=== PATIENT | female | born 1930 | race American Indian/Alaskan Native ===

== ENCOUNTER 2016-05-27 08:50 | Day surgery (SDC) | payer MEDICARE ==
--- NOTE | 2016-05-27 10:44 | Anesthesia Day of Surgery ---
Anesthesia Day of Surgery - Day of Surgery Patient Examined: Yes Patient H&P Reviewed: Yes Patient is NPO: Yes
--- NOTE | 2016-05-27 10:46 | Anesthesia Consultation ---
Anesthesia Consult and Med Hx - Airway Anesthetic Teeth Evaluation: Dentures ROM Head & Neck: Adequate Mental/Hyoid Distance: Adequate Mallampati Class: Class II Intubation Access Assessment: Probably Good - Pulmonary Exam CTA: Yes - Pre-Operative Health Status ASA Pre-Surgery Classification: ASA3 Proposed Anesthetic Plan: MAC - Pulmonary Hx Smoking: Yes Hx Asthma: Yes - Cardiovascular System Hx Hypertension: Yes - Gastrointestinal Hx Gastroesophageal Reflux Disease: Yes - Endocrine Hx Non-Insulin Dependent Diabetes: Yes Hx Hypothyroidism: Yes - Other Systems Hx Obesity: Yes - Additional Comments Anesthesia Medical History Comments: npo after MN. No prior anesthesia problems
[2016-05-27] MEDS ORDERED: XYLOCAINE MPF 2% ONE (10:50)
[2016-05-27] MEDS ORDERED: DIPRIVAN 10 MG/ML IV ONE (10:51)
[2016-05-27] MEDS ORDERED: NACL 0.9% 1000 ML 1,000 ML IV SCH (11:00)
--- NOTE | 2016-05-27 11:12 | Discharge Summary ---
Short Stay Discharge Plan Activity: advance as tolerated Weight Bearing Status: Weight Bear as Tolerated Diet: regular Follow up with: CRISTINO COOK MD [Primary Care Provider] - 7 Days
--- NOTE | 2016-05-27 11:12 | Operative Report ---
Operative Report Operative Report: Operative Report: Date of procedure: 05/27/2016 Procedure: Esophagogastroduodenoscopy with multiple mucosal biopsies Attending physician: Gui Gunter MD Busgirl: Gui Gunter MD Indication: Patient is a 85-year-old female who presented with a history of epigastric pain heartburn and indigestion. An upper endoscopy is done to assess patient regarding cause of her symptoms so that treatment may be directed based on the findings. Consent: Informed consent was obtained after advising the patient and family regarding nature of this procedure, its indications, potential benefits as well as possible complications including but not limited to bleeding perforation and adverse reaction to medication, infection as well as other cardiopulmonary complications. An informed written and verbal consent was then obtained after due opportunity was provided for questions and answers. Monitoring: Patient was monitored continuously with pulse oximetry and electrocardiographic recordings as well as blood pressure recordings. Vital signs remained stable throughout this procedure with no untoward events. Preoperative assessment: Patient was assessed immediately prior to this procedure for capacity to tolerate monitored anesthesia care and moderate sedation as well as general anesthesia. Patient's ASA classification is 2, Mallampati class is 2, Hyomental distance is 3. Instrument: [employer] video endoscope Medications: Propofol given intravenously in divided doses. For details please refer to anesthesia records. Description of procedure: Patient was placed in the left lateral decubitus position after achieving sedation, the endoscope was introduced into the esophagus under direct vision. It was then advanced beyond the esophagus into the stomach and then beyond the stomach into the duodenum and to the second portion of the duodenum. It was subsequently withdrawn with careful inspection of all mucosal surfaces with the following findings. Findings: Esophagus was relatively normal however patient had an irregular Z line at 39 cm. There was a 1-2 cm sliding hiatal hernia seen on entry into the stomach. There was There was mild erythema in the gastric antrum. Biopsies of the antrum were obtained for histopathology. The duodenum was normal to second portion. Impression: Irregular Z line. Hiatal hernia. Gastric antral erythema. Plan: Follow pathology report. Direct additional treatment based on the pathology report.
--- NOTE | 2016-05-27 11:41 | Post Anesthesia Evaluation ---
- Post Anesthesia Evaluation Patient Participated: Yes Airway Patent: Yes Stable Respiratory Function: Yes Nausea/Vomiting: No Temp > 96.8F: Yes Pain Manageable: Yes Adequeate Hydration: Yes Anesthesia Complications: No Block Receding Appropriately: Not Applicable Patient on Ventilator: No
[2016-05-27 11:54] VITALS: BP 134/72
== END 2016-05-27 08:51 | disposition home or self-care (01) ==
LOC: GIO 08:50
PROVIDERS: ATTEND Internal Medicine Gastroenterology
DX: K22.8 Other specified diseases of esophagus (principal); K31.89 Other diseases of stomach and duodenum; K44.9 Diaphragmatic hernia without obstruction or gangrene; M19.90 Unspecified osteoarthritis, unspecified site; I10 Essential (primary) hypertension; E11.9 Type 2 diabetes mellitus without complications; J45.909 Unspecified asthma, uncomplicated; K21.9 Gastro-esophageal reflux disease without esophagitis; E03.9 Hypothyroidism, unspecified; E78.00 Pure hypercholesterolemia, unspecified; E66.9 Obesity, unspecified; Z68.43 Body mass index [BMI] 50.0-59.9, adult; Z96.659 Presence of unspecified artificial knee joint; Z87.891 Personal history of nicotine dependence; Z83.3 Family history of diabetes mellitus
CPT/HCPCS: 43239; 82962; 88305; 88342; J7030; J2704

== ENCOUNTER 2019-02-05 16:22 | Observation (INO) | payer MEDICARE ==
[2019-02-05 17:13] LABS: Basophils # (Auto) 0.1 K/mm3 (0.0-0.1); Eosinophils # (Auto) 0.1 K/mm3 (0.0-0.4); Eosinophils % (Auto) 0.9 % (0.0-4.3); Hematocrit 40.4 % (30.3-42.9); Hemoglobin 13.8 gm/dl (10.1-14.3); Lymphocytes # (Auto) 1.7 K/mm3 (1.2-5.4); Lymphocytes % (Auto) 20.4 % (13.4-35.0); Mean Corpuscular HGB Conc 34 % (30-34); Mean Corpuscular Volume 97 fl (79-97); Monocytes # (Auto) 0.8 K/mm3 (0.0-0.8); Monocytes % (Auto) 9.1 % (0.0-7.3); Platelet Count 258 K/mm3 (140-440); Red Blood Count 4.16 M/mm3 (3.65-5.03)
[2019-02-05 17:32] LABS: BUN/Creatinine Ratio 19; Blood Urea Nitrogen 21 mg/dL (7-17); Calcium 9.4 mg/dL (8.4-10.2); Hemolysis Index 2
[2019-02-05 17:45] LABS: INR 1.03 (0.87-1.13)
[2019-02-05 17:46] LABS: Partial Thromboplastin Time 28.6 Sec. (24.2-36.6)
--- NOTE | 2019-02-05 18:20 | Cat Scan Report ---
CT head/brain wo con INDICATION / CLINICAL INFORMATION: 88 years Female; dizziness. TECHNIQUE: Routine CT head without contrast. All CT scans at this location are performed using CT dos e reduction for ALARA by means of automated exposure control. COMPARISON: None. FINDINGS: BRAIN / INTRACRANIAL CONTENTS: No acute hemorrhage, mass effect, midline shift, hydrocephalus, or acu te, large territorial infarct. No chronic infarct or focal atrophy. Cortical involution is seen. Mode rate dilatation of left temporal horn tip seen suggesting moderate volume loss in the left medial tem poral lobe.. No significant white matter abnormality. CRANIOCERVICAL JUNCTION: No significant abnormality. ORBITS: No significant abnormality of visualized orbits. SINUSES / MASTOIDS: No significant abnormality of the visualized paranasal sinuses or mastoid air alejo ls. ADDITIONAL FINDINGS: Vascular calcification is seen in the left vertebral artery. IMPRESSION: I do not see an acute parenchymal lesion in the brain. Signer Name: Jb Sheth MD Signed: 02/05/2019 6:15 PM Workstation Name: [id number]
[2019-02-05 18:27] LABS: Free T4 (Free Thyroxine) 1.29 ng/dL (0.76-1.46)
--- NOTE | 2019-02-05 18:32 | XRay Report ---
CHEST 1 VIEW 5:59 PM INDICATION / CLINICAL INFORMATION: Dizziness. COMPARISON: None available. FINDINGS: SUPPORT DEVICES: None. HEART / MEDIASTINUM: The heart size is borderline with a left ventricular configuration. There is mil d aortic tortuosity without aneurysm. LUNGS / PLEURA: No significant pulmonary or pleural abnormality. No pneumothorax. ADDITIONAL FINDINGS: There are advanced degenerative changes involving the left glenohumeral joint. IMPRESSION: No acute findings. Signer Name: Isak Saini MD Signed: 02/05/2019 6:28 PM Workstation Name: [id number]
--- NOTE | 2019-02-05 19:00 | Emergency Department Report ---
ED Dizziness HPI - General Chief Complaint: Arrhythmia/Palpitations Stated Complaint: DIZZINESS Time Seen by Provider: 02/05/19 16:42 Source: patient, EMS, old records reviewed Mode of arrival: Stretcher Limitations: No Limitations - History of Present Illness Initial Comments: 88 year-old female with past medical history of arthritis, asthma, diabetes, GERD, hypertension, and hypothyroidism presents to the hospital complains of episode of dizziness. Patient reports decreased appetite the last several days. She has not had a bowel movement in 3 days and felt that she was constipated. She took milk of magnesia and was passing a lot of gas. She attempted to have a bowel movement and was straining but no fecal output reported. He returned to b ed and she was feeling dizzy which is described both as a spinning and lightheaded sensation. EMS obtained a rhythm strip list was suggestive of torsades with spontaneous conversion to sinus rhythm. Patient denies headache, chest pain, shortness of breath, abdominal pain, nausea, or vomiting. Patient also complains of some involuntary shaking to her right arm and noted to have a mild tremor. PMD: Dr. Yanci Hernandez allergies: None - Related Data Home Medications Medication Instructions Recorded Confirmed Last Taken Allopurinol [Zyloprim] 300 mg PO QDAY 05/18/14 05/27/16 05/26/16 Aspirin [Aspirin BABY CHEW TAB] 325 mg PO QDAY 05/18/14 05/27/16 05/25/16 Diltiazem HCl [Diltiazem 24Hr ER] 325 mg PO DAILY 05/18/14 05/27/16 05/27/16 Levothyroxine [Synthroid] 75 mcg PO QAM 05/18/14 05/27/16 05/26/16 Lisinopril [Zestril] 20 mg PO BID 05/18/14 05/27/16 05/26/16 Omeprazole [PriLOSEC] 20 mg PO PRN PRN 05/18/14 05/27/16 05/26/16 metFORMIN [Glucophage] 500 mg PO BID 05/18/14 05/27/16 05/26/16 Advair Diskus 100-50 mcg 2 puff INNOSTRIL PRN PRN 05/24/16 05/27/16 05/27/16 AtorvaSTATin 10 mg PO HS 05/24/16 05/27/16 05/26/16 Previous Rx's Medication Instructions Recorded Last Taken Type Sodium Chloride/Sodium Bicarb 75 ml NS TID #1 spray 05/18/14 Unknown Rx [Nasa Mist Saline [place]] Allergies Allergy/AdvReac Type Severity Reaction Status Date / Time morphine Allergy Mild Unknown Verified 05/24/16 13:20 ED Review of Systems ROS: Stated complaint: DIZZINESS Other details as noted in HPI Comment: All other systems reviewed and negative ED Past Medical Hx - Past Medical History Previous Medical History?: Yes Hx Hypertension: Yes Hx Diabetes: Yes Hx GERD: Yes Hx Arthritis: Yes Hx Asthma: Yes Additional medical history: Thyroid, recurrent sinus infections - Surgical History Past Surgical History?: Yes Additional Surgical History: Thyroidectomy, Right knee replacement, hysterectomy - Social History Smoking Status: Never Smoker Substance Use Type: None - Medications Home Medications: Home Medications Medication Instructions Recorded Confirmed Last Taken Type Allopurinol [Zyloprim] 300 mg PO QDAY 05/18/14 05/27/16 05/26/16 History Aspirin [Aspirin BABY CHEW TAB] 325 mg PO QDAY 05/18/14 05/27/16 05/25/16 History Diltiazem HCl [Diltiazem 24Hr ER] 325 mg PO DAILY 05/18/14 05/27/16 05/27/16 History Levothyroxine [Synthroid] 75 mcg PO QAM 05/18/14 05/27/16 05/26/16 History Lisinopril [Zestril] 20 mg PO BID 05/18/14 05/27/16 05/26/16 History Omeprazole [PriLOSEC] 20 mg PO PRN PRN 05/18/14 05/27/16 05/26/16 History Sodium Chloride/Sodium Bicarb 75 ml NS TID #1 spray 05/18/14 05/24/16 Unknown Rx [Nasa Mist Saline [place]] metFORMIN [Glucophage] 500 mg PO BID 05/18/14 05/27/16 05/26/16 History Advair Diskus 100-50 mcg 2 puff INNOSTRIL PRN PRN 05/24/16 05/27/16 05/27/16 History AtorvaSTATin 10 mg PO HS 05/24/16 05/27/16 05/26/16 History ED Physical Exam - General Limitations: No Limitations - Other Other exam information: General: No acute distress Head: Atraumatic Eyes: normal appearance ENT: Moist mucous membranes Neck: Normal appearance, no midline tenderness Chest: Clear to auscultation bilaterally CV: Regular rate and rhythm Abdomen: Soft, normal bowel sounds, nontender, nondistended, no rebound or guarding Back: Normal inspection Extremity: Normal inspection infection, full range of motion Neuro: Alert O x 3, no facial asymmetry, speech clear, no gross motor sensory deficit, [id number] function intact Psych: Appropriate behavior Skin: No rash ED Course Vital Signs 02/05/19 02/05/19 02/05/19 16:30 16:35 16:40 Temperature 98.3 F Pulse Rate 69 73 Respiratory 14 13 13 Rate Blood Pressure 153/72 146/80 Blood Pressure 146/80 [Right] O2 Sat by Pulse 95 97 97 Oximetry 02/05/19 02/05/19 17:01 17:31 Temperature Pulse Rate 71 92 H Respiratory 14 12 Rate Blood Pressure 168/66 168/66 Blood Pressure [Right] O2 Sat by Pulse 95 Oximetry - Consultations Consultation #1: 02/05/19 17:52 Rhythm strip provided by EMS were reviewed by on-call nurse licensed practical Dr Monae. He feels that they represent artifact and not torasades. ED Medical Decision Making - Lab Data Result diagrams: 02/05/19 16:58 02/05/19 16:58 Lab Results 02/05/19 02/05/19 02/05/19 Range/Units 16:58 16:58 17:15 WBC 8.4 (4.5-11.0) K/mm3 RBC 4.16 (3.65-5.03) M/mm3 Hgb 13.8 (10.1-14.3) gm/dl Hct 40.4 (30.3-42.9) % MCV 97 (79-97) fl MCH 33 H (28-32) pg MCHC 34 (30-34) % RDW 16.0 H (13.2-15.2) % Plt Count 258 (140-440) K/mm3 Lymph % (Auto) 20.4 (13.4-35.0) % Mcleod % (Auto) 9.1 H (0.0-7.3) % Eos % (Auto) 0.9 (0.0-4.3) % Baso % (Auto) 1.0 (0.0-1.8) % Lymph # 1.7 (1.2-5.4) K/mm3 Mcleod # 0.8 (0.0-0.8) K/mm3 Eos # 0.1 (0.0-0.4) K/mm3 Baso # 0.1 (0.0-0.1) K/mm3 Seg Neutrophils % 68.6 (40.0-70.0) % Seg Neutrophils # 5.8 (1.8-7.7) K/mm3 PT 13.4 (12.2-14.9) Sec. INR 1.03 (0.87-1.13) APTT 28.6 (24.2-36.6) Sec. Sodium 134 L (137-145) mmol/L Potassium 4.1 (3.6-5.0) mmol/L Chloride 95.7 L (98-107) mmol/L Carbon Dioxide 25 (22-30) mmol/L Anion Gap 17 mmol/L BUN 21 H (7-17) mg/dL Creatinine 1.1 (0.7-1.2) mg/dL Estimated GFR 57 ml/min BUN/Creatinine Ratio 19 % Glucose 112 H (65-100) mg/dL Calcium 9.4 (8.4-10.2) mg/dL Magnesium 2.50 H (1.7-2.3) mg/dL Troponin T < 0.010 (0.00-0.029) ng/mL TSH (0.270-4.200) mlU/mL Free T4 (0.76-1.46) ng/dL 02/05/19 Range/Units 17:47 WBC (4.5-11.0) K/mm3 RBC (3.65-5.03) M/mm3 Hgb (10.1-14.3) gm/dl Hct (30.3-42.9) % MCV (79-97) fl MCH (28-32) pg MCHC (30-34) % RDW (13.2-15.2) % Plt Count (140-440) K/mm3 Lymph % (Auto) (13.4-35.0) % Mcleod % (Auto) (0.0-7.3) % Eos % (Auto) (0.0-4.3) % Baso % (Auto) (0.0-1.8) % Lymph # (1.2-5.4) K/mm3 Mcleod # (0.0-0.8) K/mm3 Eos # (0.0-0.4) K/mm3 Baso # (0.0-0.1) K/mm3 Seg Neutrophils % (40.0-70.0) % Seg Neutrophils # (1.8-7.7) K/mm3 PT (12.2-14.9) Sec. INR (0.87-1.13) APTT (24.2-36.6) Sec. Sodium (137-145) mmol/L Potassium (3.6-5.0) mmol/L Chloride (98-107) mmol/L Carbon Dioxide (22-30) mmol/L Anion Gap mmol/L BUN (7-17) mg/dL Creatinine (0.7-1.2) mg/dL Estimated GFR ml/min BUN/Creatinine Ratio % Glucose (65-100) mg/dL Calcium (8.4-10.2) mg/dL Magnesium (1.7-2.3) mg/dL Troponin T (0.00-0.029) ng/mL TSH 3.550 (0.270-4.200) mlU/mL Free T4 1.29 (0.76-1.46) ng/dL - EKG Data -: EKG Interpreted by Me (artifact) EKG shows normal: sinus rhythm, ST-T waves (no stemi) Rate: normal (72) - EKG Data When compared to previous EKG there are: no significant change - Radiology Data Radiology results: report reviewed CHEST 1 VIEW 5:59 PM INDICATION / CLINICAL INFORMATION: Dizziness. COMPARISON: None available. FINDINGS: SUPPORT DEVICES: None. HEART / MEDIASTINUM: The heart size is borderline with a left ventricular configuration. There is mild aortic tortuosity without aneurysm. LUNGS / PLEURA: No significant pulmonary or pleural abnormality. No pneumothorax. ADDITIONAL FINDINGS: There are advanced degenerative changes involving the left glenohumeral joint. IMPRESSION: No acute findings. CT head/brain wo con INDICATION / CLINICAL INFORMATION: 88 years Female; dizziness. TECHNIQUE: Routine CT head without contrast. All CT scans at this location are performed using CT dose reduction for ALARA by means of automated exposure control. COMPARISON: None. FINDINGS: BRAIN / INTRACRANIAL CONTENTS: No acute hemorrhage, mass effect, midline shift, hydrocephalus, or acute, large territorial infarct. No chronic infarct or focal atrophy. Cortical involution is seen. Moderate dilatation of left temporal horn tip seen suggesting moderate volume loss in the left medial temporal lobe.. No significant white matter abnormality. CRANIOCERVICAL JUNCTION: No significant abnormality. ORBITS: No significant abnormality of visualized orbits. SINUSES / MASTOIDS: No significant abnormality of the visualized paranasal sinuses or mastoid air cells. ADDITIONAL FINDINGS: Vascular calcification is seen in the left vertebral artery. IMPRESSION: I do not see an acute parenchymal lesion in the brain. - Medical Decision Making Case discussed with nurse licensed practical regarding possible arrhythmia and was felt to be artifact. Sinus rhythm on EKG and troponin negative. Imaging results also negative. Patient will be admitted for monitoring and further evaluation. - Differential Diagnosis arrhythmia, dehydration, anemia, vasovagal, CVA Critical Care Time: No Critical care attestation.: If time is entered above; I have spent that time in minutes in the direct care of this critically ill patient, excluding procedure time. ED Disposition Clinical Impression: Lightheadedness, Dizziness Disposition: DC-09 OP ADMIT IP TO THIS HOSP Is pt being admited?: Yes Condition: Stable Time of Disposition: 19:09 (Dr Guardado/hosp)
--- NOTE | 2019-02-05 19:17 | History and Physical Report ---
History of Present Illness Chief complaint: I Feel dizzy History of present illness: 88 YO Female with OA, Debility, Asthma, DM, GERD, HTN, Hypothyroidism presents to ED for evaluation. Pt states that she has experienced several episodes of dizziness, decreased appetite, decreased oral intake over the past 3 days with persistent symptoms over the same time frame. Pt also reports lack of bowel movement over the past 3 days. Pt attempted a bowel movement and developed worsening of the aforementioned symptoms. Pt acknowledges feeling like the room was spinning and feeling lightheaded. EMS notified and upon arrival the patient was found to be in distress and transported to [facility]. Pt seen and evaluated in ED and found to have Hyponatremia, Dizziness, and Cardiac Arrhythmia. Pt placed in Observation status and admitted to Telemetry. Cardiology team consulted in ED. Patient denies fever, chills, headache, chest pain, shortness of breath, abdominal pain, nausea, or vomiting. No prior admission for review. All listed medication reconciled at time of admission. Past History Past Medical History: other (see hpi) Past Surgical History: thyroidectomy, hysterectomy, total knee replacement Social history: . denies: smoking, alcohol abuse, prescription drug abuse Family history: diabetes, hypertension Medications and Allergies Allergies Allergy/AdvReac Type Severity Reaction Status Date / Time morphine Allergy Mild Unknown Verified 05/24/16 13:20 Home Medications Medication Instructions Recorded Confirmed Last Taken Type Allopurinol [Zyloprim] 300 mg PO QDAY 05/18/14 02/05/19 05/26/16 History Aspirin [Aspirin BABY CHEW TAB] 325 mg PO QDAY 05/18/14 02/05/19 05/25/16 History Levothyroxine [Synthroid] 75 mcg PO QAM 05/18/14 02/05/19 05/26/16 History Sodium Chloride/Sodium Bicarb 75 ml NS TID #1 spray 05/18/14 02/05/19 Unknown Rx [Nasa Mist Saline [place]] metFORMIN [Glucophage] 500 mg PO BID 05/18/14 02/05/19 05/26/16 History Advair Diskus 100-50 mcg 2 puff INNOSTRIL PRN PRN 05/24/16 02/05/19 05/27/16 History AtorvaSTATin [Lipitor] 20 mg PO QHS 02/05/19 02/05/19 Unknown History Cyclobenzaprine HCl [Flexeril 5 MG 5 mg PO TID 02/05/19 02/05/19 Unknown History TAB] HYDROcodone/APAP 7.5-325 [[place] 1 each PO Q6HR PRN 02/05/19 02/05/19 Unknown History 7.5/325] Lisinopril/Hydrochlorothiazide 1 tab PO QDAY 02/05/19 02/05/19 Unknown History [Zestoretic 20-12.5 mg] Metoclopramide [Reglan] 10 mg PO TID 02/05/19 02/05/19 Unknown History Review of Systems Constitutional: weakness, no weight gain, no fever, no chills Ears, nose, mouth and throat: no ear pain, no ear discharge, no tinnitis, no decreased hearing, no nasal congestion, no nasal discharge Breasts: no change in shape, no swelling, no mass Cardiovascular: no chest pain, no orthopnea, no palpitations, no rapid/irregular heart beat, no edema, no syncope Respiratory: no cough, no cough with sputum, no excessive sputum, no hemoptysis, no shortness of breath Gastrointestinal: no nausea, no vomiting, no diarrhea, no constipation Genitourinary Female: no pelvic pain, no flank pain, no menorrhagia, no dysuria, no urinary frequency, no urgency Rectal: no pain, no incontinence, no bleeding Musculoskeletal: no neck stiffness, no neck pain, no shooting arm pain, no arm numbness/tingling, no low back pain, no redness of joints Integumentary: no rash, no pruritis, no redness, no sores, no jaundice Neurological: vertigo, other, no transient paralysis, no paralysis, no weakness, no parathesias, no seizures, no aphasia, no change in mentation Psychiatric: no memory loss, no change in sleep habits, no sleep disturbances, no hypersomnia Endocrine: no cold intolerance, no heat intolerance, no excessive thirst, no polydipsia, no polyuria Hematologic/Lymphatic: no easy bruising, no easy bleeding, no lymphadenopathy Allergic/Immunologic: no urticaria, no wheezing, no anaphylaxis, no angioedema Exam - Constitutional Vitals: Temp Pulse Resp BP Pulse Ox 98.3 F 92 H 12 168/66 95 02/05/19 16:35 02/05/19 17:31 02/05/19 17:31 02/05/19 17:31 02/05/19 17:01 General appearance: Present: mild distress, obese - EENT Eyes: Present: PERRL ENT: hearing intact, clear oral mucosa - Neck Neck: Present: supple, normal ROM - Respiratory Respiratory effort: normal Respiratory: bilateral: CTA - Cardiovascular Heart Sounds: Present: S1 & S2. Absent: rub, click - Extremities Extremities: pulses symmetrical, No edema Peripheral Pulses: within normal limits - Abdominal General gastrointestinal: Present: soft, non-tender, non-distended, normal bowel sounds Female genitourinary: Present: normal - Integumentary Integumentary: Present: clear, warm, dry - Musculoskeletal Musculoskeletal: gait normal, strength equal bilaterally - Psychiatric Psychiatric: appropriate mood/affect, intact judgment & insight - Neurologic Neurologic: CNII-XII intact, moves all extremities Results - Labs CBC & Chem 7: 02/05/19 16:58 02/05/19 16:58 Labs: Abnormal lab results 02/05/19 02/05/19 Range/Units 16:58 16:58 MCH 33 H (28-32) pg RDW 16.0 H (13.2-15.2) % [place] % (Auto) 9.1 H (0.0-7.3) % Sodium 134 L (137-145) mmol/L Chloride 95.7 L (98-107) mmol/L BUN 21 H (7-17) mg/dL Glucose 112 H (65-100) mg/dL Magnesium 2.50 H (1.7-2.3) mg/dL Assessment and Plan - Patient Problems (1) Hyponatremia syndrome Current Visit: Yes Status: Acute Plan to address problem: IVF resuscitation therapy, repeat bmp in am. (2) Vertigo Current Visit: Yes Status: Acute (3) Constipation Current Visit: Yes Status: Acute Plan to address problem: Bowel regimen, (4) Arrhythmia Current Visit: Yes Status: Acute Qualifiers: Arrhythmia type: other cardiac arrhythmia Qualified Code(s): I49.8 - Other specified cardiac arrhythmias Plan to address problem: Cardiology consulted, Echo, thyroid panel, magnesium, telemetry. (5) Advance care planning Current Visit: Yes Status: Acute Plan to address problem: +30 minutes. Pt is full code. Pt and brother acknowledge understanding and agreement with care plan. (6) DVT prophylaxis Current Visit: Yes Status: Acute Plan to address problem: SCD to BLE while in bed, prophylactic lovenox
[2019-02-05] MEDS ORDERED: ONDANSETRON 4 MG/2 ML INJ IV PRN (19:21)
[2019-02-05] MEDS ORDERED: ALBUTEROL 2.5 MG/3 ML NEBU IH PRN (19:21)
[2019-02-05] MEDS ORDERED: ACETAMINOPHEN 325 MG TAB PO PRN (19:21)
[2019-02-05] MEDS ORDERED: ADVAIR InNostril PRN (19:24)
[2019-02-05] MEDS ORDERED: NON-FORMULARY EACH (Omeprazole [Prilosec] 20 MG) PO PRN (19:24)
[2019-02-05] MEDS ORDERED: PANTOPRAZOLE 20 MG TAB PO PRN (19:35)
[2019-02-05] MEDS ORDERED: MECLIZINE 25 MG TAB PO ONE (19:42)
[2019-02-05] MEDS ORDERED: dilTIAZem CD 180 MG CAP PO ONE (19:51)
[2019-02-05] MEDS ORDERED: BUDESONIDE 0.5 MG/2 ML NEBU IH SCH (20:00)
[2019-02-05] MEDS ORDERED: SODIUM CHLORIDE 0.9% 1000 ML 1,000 ML IV SCH (20:00)
[2019-02-05] MEDS ORDERED: ARFORMOTEROL 15 MCG/2 ML NEBU IH SCH (20:00)
[2019-02-05] MEDS ORDERED: HYDROcodone/ACETAMINOPHEN 7.5-325MG TAB PO PRN (20:37)
[2019-02-05] MEDS ORDERED: SENNOSIDES/DOCUSATE SODIUM 8.6/50 MG TAB PO PRN (20:39)
[2019-02-05] MEDS ORDERED: NON-FORMULARY EACH (Atorvastatin 10 MG) PO SCH (22:00)
[2019-02-06] MEDS: LISINOPRIL 20 MG TAB PO SCH ×2 (01:59→09:41)
[2019-02-06] MEDS ORDERED: METOPROLOL TARTRATE 5 MG/5 ML INJ IV ONE (02:46)
[2019-02-06 05:25] LABS: Alanine Aminotransferase 9 units/L (7-56); Albumin 3.4 g/dL (3.9-5); BUN/Creatinine Ratio 19; Blood Urea Nitrogen 19 mg/dL (7-17); Calcium 9.1 mg/dL (8.4-10.2); Hemolysis Index 17
[2019-02-06] MEDS ORDERED: METOCLOPRAMIDE 10 MG TAB PO SCH (08:00)
[2019-02-06] MEDS ORDERED: CYCLOBENZAPRINE 10 MG TAB PO SCH (08:00)
[2019-02-06 08:54] VITALS: BP 151/75
[2019-02-06] MEDS ORDERED: ASPIRIN 81 MG TAB CHEW PO SCH (10:00)
[2019-02-06] MEDS ORDERED: DILTIAZEM HCL PO SCH (10:00)
[2019-02-06] MEDS ORDERED: allopurinoL 300 MG TAB PO SCH (10:00)
[2019-02-06] MEDS ORDERED: NON-FORMULARY EACH (Lisinopril/Hydrochlorothiazide [Zestoretic 20-12.5 Mg] 1 TAB) PO SCH (10:00)
[2019-02-06] MEDS ORDERED: dilTIAZem CD 180 MG CAP PO SCH (10:00)
[2019-02-06] MEDS ORDERED: hydroCHLOROthiazide 12.5 MG CAP PO SCH (10:00)
[2019-02-06] MEDS ORDERED: LEVOTHYROXINE 75 MCG TAB PO SCH (10:00)
--- NOTE | 2019-02-06 10:56 | Discharge Summary ---
Providers - Providers Date of Admission: 02/05/19 19:21 Attending physician: SHELDON BAILON MD 02/05/19 19:42 Physical Therapy Evaluation and Treat [CONS] Routine Comment: Reason For Exam: Early Branch-Hallpike Test Primary care physician: [employer]ER Hospitalization Reason for admission: vertigo Condition: Stable Hospital course: 88 YO Female with OA, Debility, Asthma, DM, GERD, HTN, Hypothyroidism presents to ED for evaluation. Pt states that she has experienced several episodes of dizziness, decreased appetite, decreased oral intake over the past 3 days with persistent symptoms over the same time frame. Pt also reports lack of bowel movement over the past 3 days. Pt attempted a bowel movement and developed worsening of the aforementioned symptoms. Pt acknowledges feeling like the room was spinning and feeling lightheaded. EMS notified and upon arrival the patient was found to be in distress and transported to [facility]. Pt seen and evaluated in ED and found to have Hyponatremia, Dizziness, and Cardiac Arrhythmia. Pt placed in Observation status and admitted to Telemetry. Cardiology team consulted in ED. Patient denies fever, chills, headache, chest pain, shortness of breath, abdominal pain, nausea, or vomiting. No prior admission for review. All listed medication reconciled at time of admission. (1) Hyponatremia syndrome Current Visit: Yes Status: Acute Plan to address problem: IVF resuscitation therapy, repeat bmp in am. sodium improved (2) Vertigo Current Visit: Yes Status: Acute Recommended outpatient OT for treatment and vestibular training (3) Constipation Current Visit: Yes Status: Acute Plan to address problem: Bowel regimen, (4) Arrhythmia Current Visit: Yes Status: Acute Qualifiers: Arrhythmia type: other cardiac arrhythmia Qualified Code(s): I49.8 - Other specified cardiac arrhythmias Plan to address problem: at baseline (5) Advance care planning Current Visit: Yes Status: Acute Plan to address problem: +30 minutes. Pt is full code. Pt and brother acknowledge understanding and agreement with care plan. Disposition: TO HOME OR SELFCARE Time spent for discharge: 35 mins Core Measure Documentation - Palliative Care Palliative Care/ Comfort Measures: Not Applicable - Core Measures Any of the following diagnoses?: none Exam - Physical Exam Narrative exam: General appearance: Present: no distress, obese - EENT Eyes: Present: PERRL ENT: hearing intact, clear oral mucosa - Neck Neck: Present: supple, normal ROM - Respiratory Respiratory effort: normal Respiratory: bilateral: CTA - Cardiovascular Heart Sounds: Present: S1 & S2. Absent: rub, click - Extremities Extremities: pulses symmetrical, No edema Peripheral Pulses: within normal limits - Abdominal General gastrointestinal: Present: soft, non-tender, non-distended, normal bowel sounds Female genitourinary: Present: normal - Integumentary Integumentary: Present: clear, warm, dry - Musculoskeletal Musculoskeletal: gait normal, strength equal bilaterally - Psychiatric Psychiatric: appropriate mood/affect, intact judgment & insight - Neurologic Neurologic: CNII-XII intact, moves all extremities - Constitutional Vitals: Temp Pulse Resp BP Pulse Ox 97.9 F 69 18 151/75 96 02/06/19 08:31 02/06/19 09:39 02/06/19 08:31 02/06/19 09:39 02/06/19 08:31 Plan Activity: advance as tolerated, fall precautions Diet: low fat Special Instructions: record daily BP diary Follow up with: PRIMARY MD [place] [Primary Care Provider] - 7 Days ERIK STUBBS MD [Staff Physician] - 7 Days Prescriptions: Meclizine [Antivert] 12.5 mg PO BID PRN #30 tablet PRN Reason: Vertigo dilTIAZem CD [Cardizem CD] 120 mg PO DAILY #30 cap Docusate Sodium [Colace] 100 mg PO BID #60 capsule Bisacodyl [Dulcolax suppos] 10 mg OR QDAY #30 supp.rect
[2019-02-06] MEDS ORDERED: LACTULOSE 20 GM/30 ML ORAL LIQD PO ONE (11:35)
[2019-02-06] MEDS ORDERED: ENOXAPARIN 40 MG/0.4 ML INJ SUB-Q SCH (22:00)
== END 2019-02-06 11:52 | disposition home or self-care (01) ==
LOC: ED 16:22 → 2B-ACE 19:21
PROVIDERS: ADMIT Internal Medicine; ATTEND Internal Medicine
DX: E87.1 Hypo-osmolality and hyponatremia (principal); R42 Dizziness and giddiness; I49.9 Cardiac arrhythmia, unspecified; M19.90 Unspecified osteoarthritis, unspecified site; E11.9 Type 2 diabetes mellitus without complications; K21.9 Gastro-esophageal reflux disease without esophagitis; I10 Essential (primary) hypertension; E03.9 Hypothyroidism, unspecified; K59.00 Constipation, unspecified
CPT/HCPCS: 36415; 70450; 71045; 80048; 80053; 82962; 83735; 84439; 84443; 84484; 85025; 85610; 85730; 93005; 93010; 94640; 99284; A9270; G0378